=== PATIENT | female | born 1950 | race Caucasian/White ===

== ENCOUNTER 2023-03-16 15:16 | Emergency (ER) | payer MEDICARE ==
[~2023-03-16] VITALS: Ht 152.4 cm; Wt 126.1 kg
[2023-03-16 15:20] VITALS: BP_SYST 122; PULSE 70; RESP 18; TEMP 97.6; O2SAT 98
[2023-03-16] MEDS ORDERED: ACETAMINOPHEN 325 MG TABLET PO ONE (15:30)
[2023-03-16] MEDS ORDERED: DIPHTH,PERTUSS(ACELL),TET VAC 0.5 ML VIAL (Tdap) I.M. ONE (15:30)
[2023-03-16] MEDS ORDERED: IBUPROFEN 800 MG TABLET PO ONE (15:30)
[2023-03-16] MEDS ORDERED: CLINDAMYCIN HCL 150 MG CAPSULE PO ONE (17:45)
[2023-03-16] MEDS ORDERED: BACITRACIN/POLYMYXIN B SULFATE 30 GM TOPICAL OINT. TP ONE (18:15)
[2023-03-16] MEDS ORDERED: IBUP-1971 PO (18:21)
[2023-03-16] MEDS ORDERED: CLIN-142 PO (18:21)
[2023-03-16 19:13] VITALS: BP_SYST 107; PULSE 60; RESP 18; TEMP 97.7; O2SAT 95
== END 2023-03-16 19:13 | disposition home or self-care (01) ==
LOC: SED 15:16
DX: S82.454A Nondisplaced comminuted fracture of shaft of right fibula, initial encounter for closed fracture (principal); S92.412A Displaced fracture of proximal phalanx of left great toe, initial encounter for closed fracture; I10 Essential (primary) hypertension; Z88.0 Allergy status to penicillin; Z79.899 Other long term (current) drug therapy; W01.0XXA Fall on same level from slipping, tripping and stumbling without subsequent striking against object, initial encounter; Y93.89 Activity, other specified; Y92.89 Other specified places as the place of occurrence of the external cause; Y99.8 Other external cause status
CPT/HCPCS: 90715; 93005; 99284